=== PATIENT | female | born 1960 | race African-American/Black ===

== ENCOUNTER 2020-04-14 17:55 | Observation (INO) ==
--- NOTE | 2020-04-14 18:42 | DR.H&P ---
H&P - History & Physical for Day of: H&P Date: 04/14/20 - Chief Complaint Chief Complaint: weight loss, n/v - History of Present Illness History of Present Illness: Patient is a 60-year-old female but as a direct admit from Dr. Alegria's office secondary to nausea and vomiting and weight loss. 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 Patient has lost 12 pounds since April 07. Does state that she is able to drink maybe 6 ounces of water per day. Does state that she does try to eat Jell-O or soup. Does report severe epigastric pain. Does report nausea. Patient underwent CT of abdomen and pelvis that was normal. CT of chest revealed slightly enlarged middle mediastinal and subcarin al lymph nodes. Diffuse moderate wall thickening of the mid esophagus. CT of chest with high-resolution has been scheduled but not performed. Referral has been sent to Dr. An for surgical evaluation. Patient will be admitted for further evaluation and treatment - Past Medical History Past Medical History: Hypertension - Past Surgical History Surgical History: No History Additional Surgical History: heart cath >5 years - Family History Family Medical History: Diabetes Mellitus, Cancer, Hypertension - Review of Systems Constitutional: Weakness Eyes: See HPI ENT: See HPI Respiratory: See HPI Cardiovascular: Chest Pain Gastrointestinal: Nausea, Vomiting, Abdominal Pain Genitourinary: See HPI Musculoskeletal: See HPI Skin: See HPI Neurological: Weakness Oriented: Normal Eyes: Normal Ear: Normal Nose: Normal Throat: Normal Respiratory: Clear Throughout Cardiovascular: Normal : Normal Auscultation: Bowel Sounds: Normal Palpation: Normal Tenderness: Epigastric Skin: Decreased Turgur Musculoskeletal: Normal Psychiatric: Normal Mood Description: Calm Speech Pattern: Clear - Assessment/Plan (1) Dehydration Status: Acute Plan: IV hydration (2) Squamous cell esophageal cancer Status: Acute Plan: Possible transfer to Dr. Stevenson for stent evaluation (3) Nausea & vomiting Status: Acute Plan: Anti-emetics. GI cocktail - Allergies Allergies/Adverse Reactions: Allergies Allergy/AdvReac Type Severity Reaction Status Date / Time No Known Drug Allergies Allergy Unverified 04/14/20 18:34 [NKDA]
[2020-04-14] MEDS ORDERED: NS 1000 ML 1,000 ML IV ONE (20:21)
[2020-04-14 21:15] LABS: BASOPHILS % (AUTO) 0.6 % (0.2-1.0); EOSINOPHILS # (AUTO) 0.1 x10^3/uL (0.0-0.2); EOSINOPHILS % (AUTO) 1.3 % (0.9-2.9); HEMATOCRIT 39.6 % (36.0-47.0); HEMOGLOBIN 12.9 g/dL (12.0-16.0); LYMPHOCYTES # (AUTO) 2.1 X10^3/uL (1.3-2.9); MEAN CORPUSCULAR HEMOGLOBIN 25.4 pg (27.0-34.0); MEAN CORPUSCULAR HGB CONC 32.4 g/dL (33.0-35.0); MEAN CORPUSCULAR VOLUME 78.4 fL (80.0-100.0); MEAN PLATELET VOLUME 8.7 fL (7.4-11.0); MONOCYTES # (AUTO) 0.5 x10^3/uL (0.3-0.8); MONOCYTES % (AUTO) 5.7 % (0.0-13.0); NEUTROPHILS # (AUTO) 5.5 x10^3/uL (2.2-4.8); NEUTROPHILS % (AUTO) 66.4 % (42.0-75.0); PLATELET COUNT 282 X10^3/uL (150.0-450.0); RED BLOOD COUNT 5.05 X10^6/uL (3.5-5.4); RED CELL DISTRIBUTION WIDTH 13.7 % (11.6-16.5); WHITE BLOOD COUNT 8.2 X10^3/uL (3.6-10.0)
[2020-04-14 21:18] VITALS: BMI 35.1
[2020-04-14 21:19] LABS: ALANINE AMINOTRANSFERASE 15 Units/L (12-78); ALBUMIN 3.7 g/dL (3.4-5.0); ALKALINE PHOSPHATASE 81 Units/L (46-116); ASPARTATE AMINO TRANSFERASE 15 Units/L (15-37); BLOOD UREA NITROGEN 9 mg/dL (7-18); CALCIUM 9.4 mg/dL (8.5-10.1); CARBON DIOXIDE 29.4 mmol/L (21-32); CHLORIDE 105 mmol/L (98-107); CREATININE 1.01 mg/dL (0.55-1.02); SODIUM 143 mmol/L (136-145); TOTAL PROTEIN 8.6 g/dL (6.4-8.2); eGFR NON BLACK RACES 59 (>60)
[2020-04-14 21:25] LABS: PLATELET MORPHOLOGY COMMENT NORMAL (NORMAL)
[2020-04-14 21:26] LABS: MICROCYTOSIS SLIGHT
--- NOTE | 2020-04-14 21:32 | RAD ---
ACUTE ABDOMEN SERIESHISTORY:Nausea, vomiting, weight loss. History of esophageal cancer.Study: Frontal view of the chest, flat and upright views of the abdomenComparison:NoneFindings:Cardiomediastinal silhouette is normal in size.Prominence of the upper mediastinum which may represent patient's esophageal cancer.Flat and upright views of the abdomen demonstrates a normal bowel gas pattern.No free air..No abnormal calcifications or abnormal soft tissue shadows. No acute bony abnormalities.IMPRESSION:1. No acute cardiopulmonary disease.2. No evidence for acute abdominal pathology.3. Prominence of the upper mediastinum may represent patient's esophageal cancer. Correlate clinically.Electronically signed by: WILLIAM GARCIA (Apr 14, 2020 21:30:52)
[2020-04-14] MEDS: PROTONIX INJ 40 MG VIAL IVP SCH (22:50)
[2020-04-15 00:30] LABS: BILIRUBIN,URINE NEGATIVE (NEGATIVE); BLOOD/HEMOGLOBIN,URINE 2+ (NEGATIVE); GLUCOSE, URINE NEGATIVE (NEGATIVE); KETONES,URINE 2+ (NEGATIVE); LEUKOCYTE ESTERASE ,URINE 1+ (NEGATIVE); NITRITES,URINE NEGATIVE (NEGATIVE); PH,URINE 6.5 (5.0 - 8.0); PROTEIN,URINE 1+ (NEGATIVE); UROBILINOGEN,URINE 1+ (NORMAL)
[2020-04-15 00:41] LABS: APPEARANCE,URINE CLEAR (CLEAR); COLOR,URINE YELLOW (YELLOW)
[2020-04-15 00:42] LABS: BACTERIA,URINE TRACE /HPF (NEGATIVE); RBC,URINE 0-2 /HPF (0-3); SQUAMOUS EPITHELIAL CELL,UR MODERATE /HPF (NEGATIVE)
[2020-04-15] MEDS: MORPHINE SULFATE INJ 2 MG INJ IVP PRN ×2 (00:53→06:00)
[2020-04-15] MEDS ORDERED: VISTARIL PO PRN (00:55)
[2020-04-15] MEDS ORDERED: VISTARIL PO ONE (01:04)
[2020-04-15] MEDS ORDERED: ZOFRAN INJ 4 MG VIAL IVP PRN ×2 (01:51→13:46)
[2020-04-15] MEDS ORDERED: ZOFRAN INJ 4 MG VIAL ONE (01:52)
[2020-04-15] MEDS: PROTONIX INJ 40 MG VIAL IVP SCH (09:30)
[2020-04-15] MEDS ORDERED: LOVENOX INJ 40 MG SYR SC SCH (10:00)
[2020-04-15] MEDS: DILAUDID INJ IVP PRN ×3 (10:03→21:28)
[2020-04-15] MEDS ORDERED: BENADRYL INJ 50 MG VIAL IV PRN (11:26)
[2020-04-15] MEDS ORDERED: ZANAFLEX PO PRN (13:48)
[2020-04-15] MEDS ORDERED: COZAAR PO SCH (14:00)
[2020-04-15 20:32] VITALS: BP 200/110
[2020-04-15] MEDS ORDERED: PROTONIX INJ 40 MG VIAL IVP SCH (21:00)
[2020-04-15] MEDS ORDERED: REQUIP PO SCH (21:00)
== END 2020-04-15 21:55 | disposition short-term general hospital (02) ==
LOC: MED/SURG
PROVIDERS: ADMIT Internal Medicine; ATTEND Internal Medicine
DX: R53.1 Weakness; C15.9 Malignant neoplasm of esophagus, unspecified; R63.4 Abnormal weight loss; R13.19 Other dysphagia; K22.2 Esophageal obstruction; I10 Essential (primary) hypertension; R59.1 Generalized enlarged lymph nodes; E86.0 Dehydration